=== PATIENT | male | born 2000 | race Caucasian/White ===

== ENCOUNTER 2022-07-31 15:12 | Emergency (ER) | payer OTHER ==
[2022-07-31 15:34] LABS: BILIRUBIN,URINE NEGATIVE (NEGATIVE); GLUCOSE, URINE (UA) NEGATIVE (NEGATIVE); KETONES,URINE (UA) TRACE mg/dL (NEGATIVE); LEUKOCYTE ESTERASE, URINE NEGATIVE (NEGATIVE); NITRITE,URINE NEGATIVE (NEGATIVE); OCCULT BLOOD,URINE LARGE (NEGATIVE); PH,URINE 8.5 PH (5.0-7.5); PROTEIN,URINE NEGATIVE (NEGATIVE); UROBILINOGEN,URINE 0.2 (NORMAL) E.U./dL (NORMAL)
[2022-07-31] MEDS ORDERED: KETOROLAC 30 MG/ML VIAL IVP STA (15:34)
[2022-07-31] MEDS ORDERED: SODIUM CHLORIDE 0.9% 1,000 ML IV STA (15:34)
[2022-07-31] MEDS ORDERED: LIDOCAINE-MPF 2% 5 ML in SODIUM CHLORIDE 0.9% 50 ML IV STA (15:34)
[2022-07-31 15:36] LABS: CLARITY,URINE CLOUDY (CLEAR)
--- NOTE | 2022-07-31 15:41 | ED Physician Documentation ---
PD HPI ABD PAIN - Stated complaint Stated Complaint: LT SIDE PX - Chief complaint Chief Complaint: Abd Pain - History obtained from History obtained from: Patient - History of Present Illness Timing - duration: Hours (2) Pain level max: 10 Pain level now: 10 Quality: Aching, Sharp Associated symptoms: No: Diarrhea, Constipation, Hematochezia, Dysuria, Hematuria - Additional information Additional information: 22-year-old male presents to the emergency department with sudden onset left- sided flank pain. This started about 2 hours prior to arrival. Rated as 10 out of 10. Sharp, aching. Nothing seems to make it better or worse. No history of similar symptoms in the past. No dysuria, urinary frequency or hematuria. No fevers. No chills. No diarrhea or constipation. Review of Systems Constitutional: denies: Fever, Chills Respiratory: denies: Cough GI: denies: Vomiting, Diarrhea Skin: denies: Rash Musculoskeletal: denies: Neck pain Neurologic: denies: Headache PD PAST MEDICAL HISTORY - Past Medical History Past Medical History: No - Past Surgical History Past Surgical History: No - Present Medications Home Medications: Ambulatory Orders Medication Instructions Recorded Confirmed Ibuprofen [Motrin] 800 mg PO Q8H PRN #30 tablet 07/31/22 Oxycodone HCl/Acetaminophen 1 - 2 each PO Q6H PRN #14 tablet 07/31/22 [Percocet 5-325 mg Tablet] MDD 6 tabs Tamsulosin [Flomax] 0.4 mg PO DAILY #14 cap 07/31/22 - Allergies Allergies/Adverse Reactions: Allergies Allergy/AdvReac Type Severity Reaction Status Date / Time No Known Drug Allergies Allergy Verified 07/31/22 15:20 - Living Situation Living Situation: reports: With family Living Arrangement: reports: At home - Social History Does the pt smoke?: No Does the pt have substance abuse?: No - Family History Family history: reports: Non contributory PD ED PE NORMAL - Vitals Vital signs reviewed: Yes - General General: Alert and oriented X 3, Other (appears in pain) - HEENT HEENT: PERRL, Moist mucous membranes - Neck Neck: Supple, no meningeal sign - Cardiac Cardiac: RRR, Strong equal pulses - Respiratory Respiratory: No respiratory distress, Clear bilaterally - Abdomen Abdomen: Soft, Non tender, Non distended - Back Back: Other (mild L CVAT) - Derm Derm: Warm and dry, No rash - Extremities Extremities: No edema - Neuro Neuro: Alert and oriented X 3 - Psych Psych: Normal mood, Normal affect Results - Vitals Vitals: Vital Signs - 24 hr 07/31/22 07/31/22 07/31/22 15:16 16:14 16:46 Temperature 36.3 C L Heart Rate 89 75 78 Respiratory 20 14 16 Rate Blood Pressure 123/77 130/90 H 125/93 H O2 Saturation 100 95 100 Oxygen O2 Source Room air - Labs Labs: Laboratory Tests 07/31/22 07/31/22 07/31/22 15:20 15:30 15:30 WBC 7.9 RBC 5.12 Hgb 15.3 Hct 46.0 MCV 89.8 MCH 29.9 MCHC 33.3 RDW 12.8 Plt Count 350 MPV 10.6 Neut # (Auto) 5.5 Lymph # (Auto) 1.7 [place] # (Auto) 0.5 Eos # (Auto) 0.1 Baso # (Auto) 0.0 Absolute Nucleated RBC 0.00 Nucleated RBC % 0.0 Sodium 137 Potassium 3.8 Chloride 100 L Carbon Dioxide 24 Anion Gap 13.0 BUN 12 Creatinine 1.1 Estimated GFR (MDRD) 84 L Glucose 118 H Calcium 10.6 H Total Bilirubin 1.1 H AST 178 H ALT 77 H Alkaline Phosphatase 94 Total Protein 8.1 Albumin 4.6 Globulin 3.5 Albumin/Globulin Ratio 1.3 Lipase 29 Urine Color YELLOW Urine Clarity CLOUDY Urine pH 8.5 H Ur Specific [place] 1.015 Urine Protein NEGATIVE Urine Glucose (UA) NEGATIVE Urine Ketones TRACE Urine Occult Blood LARGE H Urine Nitrite NEGATIVE Urine Bilirubin NEGATIVE Urine Urobilinogen 0.2 (NORMAL) Ur Leukocyte Esterase NEGATIVE Urine RBC 11-25 H Urine WBC 0-3 Ur Squamous Epith Cells NONE SEEN Amorphous Sediment Few Urine Bacteria None Seen Ur Microscopic Review INDICATED Urine Culture Comments NOT INDICATED - Rads (name of study) CT abd/pelvis Radiology: Final report received, See rad report PD Medical Decision Making - ED course Complexity details: reviewed results, re-evaluated patient, considered differential, d/w patient ED course: 22-year-old male with sudden onset left flank pain. No acute findings on CBC. ER abdominal panel shows a mildly elevated calcium and mildly elevated liver function test. Urinalysis shows hematuria. CT scan performed and shows a left- sided 4 mm ureteral stone near the UVJ. Symptoms completely resolved with IV lidocaine and IV Toradol. Also given normal saline. Will place on Flomax and pain medication for home. We will have him follow[place]. Patient is well-appearing, nontoxic. Afebrile. Patient counseled regarding signs and symptoms for which I believe and urgent re-estrellita luation would be necessary. Patient with good understanding of and agreement to plan and is comfortable going home at this time This document was made in part using voice recognition software. While efforts are made to proofread this document, sound alike and grammatical errors may occur. Departure - Departure Disposition: Home, Self Care Clinical Impression: Ureteral calculus, left, Elevated LFTs Condition: Good Instructions: ED Stone Renal W Colic Follow-Up: your,doctor in 1 week [Other] Prescriptions: Tamsulosin [Flomax] 0.4 mg PO DAILY #14 cap Ibuprofen [Motrin] 800 mg PO Q8H PRN #30 tablet PRN Reason: PAIN &/OR FEVER Oxycodone HCl/Acetaminophen [Percocet 5-325 mg Tablet] 1 - 2 each PO Q6H PRN #14 tablet MDD 6 tabs PRN Reason: pain Comments: Your prescriptions were sent to [facility] in [place]. You do have a left- sided 4 mm kidney stone that is nearing your bladder. Please make sure to drink plenty of water at home. Return for worsening pain, fevers or other new or worrisome symptoms. I am prescribing a short course of narcotic pain medication for you. These are potentially dangerous and addictive medications that should be used carefully. These medications may constipate you. Take an cjja-kef-jqbujgf stool softener (docusate) twice daily with plenty of water while taking these medications. If you go 24 hours without a bowel movement, take bzbd-maw-domxvrf miralax, per package instructions. Do not drink or drive while taking these medications. If you received narcotic or sedating medications while in the emergency department, do not drive for 24 hours. Store this medication in a safe, secure place and out of reach of children. It is a violation of federal law to give or sell this medication to another person or to use in a manner other than prescribed. The ED will not refill narcotic prescriptions, including prescriptions lost or stolen. To dispose of unwanted medications: 1. [facility] at [address] in [place] has a medication drop box. They accept prescription medications (in pill form) Monday through Monday 9:00 a.m. to 5:00 p.m. 2. The [facility] accepts prescription medications (in pill form only) for disposal year round. Call for more information. 3. Contact the [facility] for the next [facility] sponsored prescription drug collection event. , [phone], or [phone]; Discharge Date/Time: 07/31/22 17:35
[2022-07-31 15:46] LABS: BASOPHILS % (AUTO) 0.5 %; EOSINOPHILS # (AUTO) 0.1 10^3/uL (0.0-0.7); EOSINOPHILS % (AUTO) 0.8 %; HGB - HEMOGLOBIN 15.3 g/dL (14.0-18.0); LYMPHOCYTES # (AUTO) 1.7 10^3/uL (1.5-3.5); LYMPHOCYTES % (AUTO) 21.8 %; MEAN CORPUSCULAR HEMOGLOBIN 29.9 pg (27.0-31.0); MEAN CORPUSCULAR HGB CONC 33.3 g/dL (32.0-36.0); MEAN CORPUSCULAR VOLUME 89.8 fL (80.0-94.0); MEAN PLATELET VOLUME 10.6 fL (7.4-11.4); MONOCYTES # (AUTO) 0.5 10^3/uL (0.0-1.0); MONOCYTES % (AUTO) 6.8 %; NEUTROPHILS # (AUTO) 5.5 10^3/uL (1.5-6.6); NEUTROPHILS % (AUTO) 69.6 %; PLT - PLATELET COUNT 350 10^3/uL (130-450); RED BLOOD COUNT 5.12 10^6/uL (4.70-6.10); RED CELL DISTRIBUTION WIDTH 12.8 % (12.0-15.0); WHITE BLOOD COUNT 7.9 x10^3/uL (4.8-10.8)
[2022-07-31 15:50] LABS: AMORPHOUS SEDIMENT,UR Few /LPF; BACTERIA,URINE None Seen /HPF (None Seen); SQUAMOUS EPITHELIAL CELL,UR NONE SEEN (<= Few); WBC,URINE 0-3 /HPF (0-3)
[2022-07-31 16:06] LABS: ALBUMIN 4.6 g/dL (3.2-5.5); ALBUMIN/GLOBULIN RATIO 1.3 (1.0-2.2); BILIRUBIN,TOTAL 1.1 mg/dL (0.2-1.0); CALCIUM 10.6 mg/dL (8.5-10.3); CREATININE 1.1 mg/dL (0.6-1.2); POTASSIUM 3.8 mmol/L (3.5-5.0); TOTAL PROTEIN 8.1 g/dL (6.7-8.2)
--- NOTE | 2022-07-31 16:23 | CT Report ---
PROCEDURE: CT abdomen and pelvis without contrast INDICATIONS: L flank pain TECHNIQUE: Noncontrast 5 mm thick sections acquired from the diaphragms to the symphysis. 5 mm coronal and sagi ttal reformats were then performed. For radiation dose reduction, the following was used: automated exposure control, adjustment of mA and/or kV according to patient size. COMPARISON: None. FINDINGS: Image quality: Excellent. ABDOMEN: Lung bases: Lung bases are clear. Heart size is normal. Solid organs: Liver and spleen are normal in size. Gallbladder unremarkable Pancreas is normal in contours. No adrenal nodules. 4 mm calculus in the distal left ureter results in mild left hydronephrosis and hydroureter. No addit ional renal or ureteral calculi bilaterally. No right hydronephrosis. Peritoneum and bowel: Unenhanced bowel loops demonstrate normal wall thickness and caliber. No free fluid or air. Nodes and vessels: No retroperitoneal or mesenteric adenopathy by size criteria. Aorta and inferior vena cava are normal in caliber. Miscellaneous: No ventral hernias. PELVIS: Genitourinary: Bladder wall thickness is normal. Miscellaneous: No inguinal hernias or adenopathy. Bones: No suspicious bony lesions. No vertebral body compression fractures. IMPRESSION: Small 4 mm calculus in distal left ureter results in mild left hydronephrosis and hydroureter. Reviewed by: Garrick Alarcon MD on 07/31/2022 3:22 PM [place] Approved by: Garrick Alarcon MD on 07/31/2022 3:22 PM [place] Station ID: [id number]
[2022-07-31 16:47] VITALS: BP 125/93
== END 2022-07-31 17:35 | disposition home or self-care (01) ==
LOC: ED 15:12
DX: N13.2 Hydronephrosis with renal and ureteral calculous obstruction (principal); R79.89 Other specified abnormal findings of blood chemistry
CPT/HCPCS: 36415; 74176; 80053; 81001; 83690; 85025; 96374; 96375; 99284; J7040; 81003; 87086

== ENCOUNTER 2023-06-15 07:40 | Outpatient (CLI) | payer OTHER ==
--- NOTE | 2023-06-15 16:00 | MRI Report ---
PROCEDURE: KNEE WO - LT INDICATIONS: LEFT KNEE PAIN TECHNIQUE: Noncontrast sagittal PD fast spin echo and T2 fast spin echo with fat saturation, sagittal 3-D gradie nt sequence with fat saturation; coronal T1 spin echo and PD fast spin echo with fat saturation, and axial PD fast spin echo with fat saturation through the knee. COMPARISON: None. FINDINGS: Image quality: Excellent. Menisci: The medial and lateral menisci demonstrate normal morphology and internal signal. The meni scal root ligaments appear intact. Cruciate ligaments: The anterior and posterior cruciate ligaments appear intact. Medial structures: The medial collateral ligament appears thickened at its femoral insertion with ad jacent soft tissue edema. No abnormal bursal fluid. Lateral structures: The lateral collateral ligament, long and short heads of the biceps femoris tend on appear intact. The popliteus tendon appears intact. Iliotibial band appears normal. Anterior structures: The quadriceps and patellar tendons appear intact. Patellar alignment is jennifer l. No femoral trochlear dysplasia or ventral trochlear prominence. No edema in the infrapatellar fa t pad. Bones and cartilage: Mild marrow edema within patella is seen without discrete fracture line. Low-gra de chondromalacia in involving lateral facet of patella cartilage near apex is seen. The cartilage of the medial and lateral femorotibial compartments appears normal in thickness. Joint space: There is small knee joint fluid. No Stein's cyst. Normal appearing synovial plicae ar e incidentally noted. IMPRESSION: 1. Low-grade MCL sprain. 2. Contusion involving patella, no discrete fracture line. 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 Small joint effusion, no loose bodies. 3. The cruciate ligaments are intact. 4. No evidence of focal meniscal tear. Reviewed by: Mick Hanna MD on 06/15/2023 3:58 PM PST Approved by: Mick Hanna MD on 06/15/2023 3:58 PM PST Station ID: [id number]
== END 2023-06-15 07:41 | disposition home or self-care (01) ==
LOC: DI 07:40
PROVIDERS: ATTEND Orthopaedic Surgery
DX: S83.412A Sprain of medial collateral ligament of left knee, initial encounter (principal); S80.02XA Contusion of left knee, initial encounter; M22.42 Chondromalacia patellae, left knee; M25.462 Effusion, left knee